=== PATIENT | female | born 1985 | race African-American/Black ===

== ENCOUNTER 2017-05-31 09:17 | Emergency (ER) | payer SELFPAY ==
[2017-05-31] MEDS ORDERED: LIDOCAINE 2% VISCOUS SOLN 20 ML UDCUP PO ONE (09:47)
[2017-05-31] MEDS ORDERED: LIDOCAINE 1% INJ-PF (10 MG/ML) 30 ML SDV INJ ONE (09:47)
--- NOTE | 2017-05-31 09:54 | ER Document Report ---
ED Oral Problem - General Chief Complaint: Mouth Problem Stated Complaint: GUM SWELLING/FEVER Time Seen by Provider: 05/31/17 09:39 Mode of Arrival: Ambulatory Information source: Patient Notes: 31-year-old female presents to ED for multiple decayed teeth and upper and lower jaw. She also has a large dental abscess on the upper left side. TRAVEL OUTSIDE OF THE [place] IN LAST 30 DAYS: No - HPI Patient complains to provider of: Swelling of jaw, Toothache Onset: Other - Several days Onset: Gradual Quality of pain: Sharp, Throbbing Severity: Severe Pain Level: 5 Associated symptoms: Toothache, Other - Dental abscess Worsened by: Cold Relieved by: Nothing Similar symptoms previously: Yes Recently seen / treated by doctor/dentist: Yes - Related Data Allergies/Adverse Reactions: No Known Allergies Allergy (Verified 05/31/17 09:23) Past Medical History - General Information source: Patient - Social History Smoking Status: Never Smoker Cigarette use (# per day): No Chew tobacco use (# tins/day): No Smoking Education Provided: No Frequency of alcohol use: None Drug Abuse: None Lives with: Alone - With children Family History: Arthritis, CVA, DM, Hyperlipidemia, Hypertension. denies: CAD, COPD, Malignancy, Thyroid Disfunction Patient has suicidal ideation: No Patient has homicidal ideation: No - Medical History Medical History: Other - Anemia - Past Medical History Cardiac Medical History: Reports: Hx Hypertension Pulmonary Medical History: Reports: None EENT Medical History: Reports: None Neurological Medical History: Reports: None Renal/ Medical History: Reports: None Malignancy Medical History: Reports: None GI Medical History: Reports: None Musculoskeltal Medical History: Reports None Skin Medical History: Reports None Psychiatric Medical History: Reports: None Traumatic Medical History: Reports: None Infectious Medical History: Reports: None Past Surgical History: Reports: Hx Gynecologic Surgery - leep - Immunizations Immunizations up to date: Yes Hx Diphtheria, Pertussis, Tetanus Vaccination: Yes - September 2014 Review of Systems - Review of Systems Constitutional: No symptoms reported EENT: Mouth pain, Mouth swelling Cardiovascular: No symptoms reported Respiratory: No symptoms reported Gastrointestinal: No symptoms reported Genitourinary: No symptoms reported Female Genitourinary: No symptoms reported Musculoskeletal: No symptoms reported Skin: No symptoms reported Hematologic/Lymphatic: No symptoms reported Neurological/Psychological: No symptoms reported -: Yes All other systems reviewed and negative Physical Exam - Vital signs Vitals: Temp Pulse Resp Pulse Ox 100.1 F 108 H 16 100 05/31/17 09:21 05/31/17 09:21 05/31/17 09:21 05/31/17 09:21 Interpretation: Normal - General General appearance: Appears well, Alert - HEENT Head: Normocephalic, Atraumatic Eyes: Normal Pupils: PERRL Ears: Normal External canal: Normal Tympanic membrane: Normal Sinus: Normal Nasal: Normal Mouth/Lips: Caries Teeth diagram: 1 - Very decayed teeth with a large abscess and upper jaw - Respiratory Respiratory status: No respiratory distress Chest status: Nontender Breath sounds: Normal Chest palpation: Normal - Cardiovascular Rhythm: Regular Heart sounds: Normal auscultation Murmur: No - Abdominal Inspection: Normal Distension: No distension Bowel sounds: Normal Tenderness: Nontender Organomegaly: No organomegaly - Back Back: Normal, Nontender - Extremities General upper extremity: Normal inspection, Nontender, Normal color, Normal ROM , Normal temperature General lower extremity: Normal inspection, Nontender, Normal color, Normal ROM , Normal temperature, Normal weight bearing. No: Cornel's sign - Neurological Neuro grossly intact: Yes Cognition: Normal Orientation: AAOx4 Justice Coma Scale Eye Opening: Spontaneous Justice Coma Scale Verbal: Oriented Justice Coma Scale Motor: Obeys Commands Justice Coma Scale Total: 15 Speech: Normal Motor strength normal: LUE, RUE, LLE, RLE Sensory: Normal - Psychological Associated symptoms: Normal affect, Normal mood - Skin Skin Temperature: Warm Skin Moisture: Dry Skin Color: Normal Course - Vital Signs Vital signs: Temp Pulse Resp BP Pulse Ox 100.1 F 108 H 16 100 05/31/17 09:21 05/31/17 09:21 05/31/17 09:21 05/31/17 09:21 Procedures - Incision and Drainage Left Upper jaw Time completed: 10:30 Type: Simple Anesthetic type: 1% Lidocaine mL's of anesthetic: 6 Blade size: 11 I&D procedure: Other Incision Method: Incision made by scalpel Amount/type of drainage: large amount of purulent drainage Discharge - Discharge Clinical Impression: dental pain with abscess Condition: Stable Disposition: HOME, SELF-CARE Additional Instructions: TOOTHACHE: Your pain is due to dental decay. The tooth must be repaired in order for you to feel better. You will, therefore, be referred to a dentist. We do not have dentists on the staff at [facility]. Severe swelling or drainage around a tooth usually means a dental abscess. This also requires evaluation and treatment by the dentist, but antibiotics may be prescribed while awaiting dental treatment. You should be rechecked immediately if you develop major swelling of the face, increasing pain, a lump in the jaw or gums, headache, difficulty swallowing, or fever. PENICILLIN V K: You have been given a prescription for Penicillin VK. Your physician has determined that this is the best antibiotic for your condition. Pen VK can be taken with meals, however more of the antibiotic gets into the bloodstream if it's taken on an empty stomach. Penicillin usually has no side effects. However, allergy to penicillins is common. If you have had an allergic reaction to any drug of the penicillin family, you should never take any other penicillin. Notify your doctor at once if you develop hives, itching, swelling, faintness, or shortness of breath. The lidocaine in the syringe is for pain in your gums area please follow-up with a dentist as soon as possible for further treatment. I am sending you home with a prescription for penicillin for the infection at this time. FOLLOW-UP CARE: You have been referred for follow-up care to the dentists listed below. Call the dentists office for an appointment as you were instructed or within the next two days. If you experience worsening or a significant change in your symptoms, notify the physician immediately or return to the Emergency Department at any time for re-evaluation. [facility] [address] [place], [place] Sunday mornings, by appointment [facility] [address] [place] [address] [facility] [address] [facility] [address] [facility] [address] [facility] [email or web address] [address] [place] [address] Sunday- 8:00am to 5:00 pm Will see patients from other [facility]. Charges based on income and family size and accepts Medicare, Medicaid, and Insurances Will pull molars [facility] [id number] Hours of Operation 8:00 am - 4:30 pm weekdays The following dental offices accept Medicaid: [facility] Dr. Flynn Dr. Green Dr. Rice Dr. Obrien Braulio Hawkins [place], and Ama oral surgery Dr. Andres ([place]) Dr. Peterson ([place]) [facility] Drs. Arnold and Reyes ([place]) Dr. Moreno ([place]) [facility] Dr. Lechuga ([place]) Drs. Butcher and ([place]) Medicaid Care Line Prescriptions: Ibuprofen 600 mg PO Q6HP PRN #20 tablet PRN Reason: Penicillin V Potassium [Penicillin Vk 500 mg Tablet] 500 mg PO BID #20 tablet
== END 2017-05-31 11:03 | disposition home or self-care (01) ==
LOC: ER 09:17
DX: K04.7 Periapical abscess without sinus (principal); K02.9 Dental caries, unspecified; K08.89 Other specified disorders of teeth and supporting structures; I10 Essential (primary) hypertension
CPT/HCPCS: 99283; 87070; 87205; 87075; 87077; 41800; J3490 ×2